=== PATIENT | female | born 1930 | race Caucasian/White ===

== ENCOUNTER 2017-06-05 18:26 | Emergency (ER) | payer MEDICARE, OTHER ==
[2017-06-05 18:37] VITALS: BP 127/77
--- NOTE | 2017-06-05 19:50 | EDM.PDOC ---
ED HPI GENERAL MEDICAL PROBLEM - General Chief Complaint: General Stated Complaint: left hip pain s/p fall out of bed Time Seen by Provider: 06/05/17 18:30 Source of Information: Reports: Patient - History of Present Illness INITIAL COMMENTS - FREE TEXT/NARRATIVE: Patient present to ER by ambulance after falling out of bet hitting her left hip on the floor. Onset: Today, Sudden Location: Reports: Lower Extremity, Left Quality: Reports: Dull Improves with: Reports: None Associated Symptoms: Reports: No Other Symptoms Left Hip Pain Score (Numeric/FACES): 5 - Related Data Allergies Allergy/AdvReac Type Severity Reaction Status Date / Time amoxicillin AdvReac Intermediate Diarrhea Verified 06/05/17 18:37 Home Meds: Home Meds Cholecalciferol (Vitamin D3) [Vitamin D3] 5,000 unit PO DAILY 04/08/15 [History] Furosemide 40 mg PO DAILY 04/08/15 [History] Latanoprost 1 drop EYEBOTH DAILY 04/08/15 [History] Levothyroxine [Synthroid] 50 mcg PO Q48H 04/08/15 [History] Levothyroxine [Synthroid] 100 mcg PO Q48H 04/08/15 [History] NIFEdipine [Nifedipine ER] 60 mg PO DAILY 04/08/15 [History] Aspirin [Halfprin] 81 mg PO DAILY 10/30/15 [History] Past Medical History HEENT History: Reports: Cataract, Glaucoma Cardiovascular History: Reports: Other (See Below) Other Cardiovascular History: edema Gastrointestinal History: Reports: Chronic Constipation Genitourinary History: Reports: Chronic Renal Insuffiency, Pyelonephritis, Other (See Below) Other Genitourinary History: patient does have nephrostomy tube intact, nocturia Musculoskeletal History: Reports: Arthritis, Back Pain, Chronic, Other (See Below) Other Musculoskeletal History: raynaud disease Neurological History: Reports: CVA Endocrine/Metabolic History: Reports: Hypothyroidism, Vitamin D Deficiency Dermatologic History: Reports: Eczema - Infectious Disease History Infectious Disease History: Reports: Other (See Below) Other Infectious Disease History: Cleared VRE, 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 - Past Surgical History HEENT Surgical History: Reports: Cataract Surgery, Tonsillectomy GI Surgical History: Reports: Appendectomy Female Surgical History: Reports: Hysterectomy, Nephrectomy Social & Family History - Tobacco Use Smoking Status *Q: Never Smoker Second Hand Smoke Exposure: No - Recreational Drug Use Recreational Drug Use: No ED ROS GENERAL - Review of Systems Review Of Systems: ROS reveals no pertinent complaints other than HPI. ED EXAM, GENERAL - Physical Exam Exam: See Below Exam Limited By: No Limitations General Appearance: Alert, WD/WN Ears: Normal External Exam Nose: Normal Inspection Throat/Mouth: Normal Inspection Head: Atraumatic Neck: Normal Inspection Respiratory/Chest: No Respiratory Distress Cardiovascular: Normal Peripheral Pulses (Female) Exam: Other (has urostomy with leg bag) Rectal (Female) Exam: Normal Exam Back Exam: Normal Inspection Extremities: Normal Inspection Neurological: Alert, Oriented Skin Exam: Warm, Dry Course - Vital Signs Last Recorded V/S: Last Vital Signs Temp 98.6 F 06/05/17 18:30 Pulse 77 06/05/17 18:30 Resp 20 06/05/17 18:30 BP 127/77 06/05/17 18:30 Pulse Ox 95 06/05/17 18:30 - Orders/Labs/Meds Orders: Active Orders 24 hr Category Date Time Status Hip Min 2V or 3V w Pelvis Lt [CR] Stat Exams 06/05/17 18:35 Ordered CULTURE URINE [RM] Stat Lab 06/05/17 19:00 Received Labs: Laboratory Tests 06/05/17 Range/Units 19:00 Urine Color Yellow (YELLOW) Urine Appearance Cloudy (CLEAR) Urine pH 7.0 (4.5-8.0) Ur Specific [place] 1.012 (1.003-1.020) Urine Protein 30 H (NEGATIVE) mg/dL Urine Glucose (UA) Negative (NEGATIVE) mg/dL Urine Ketones Negative (NEGATIVE) mg/dL Urine Occult Blood Negative (NEGATIVE) Urine Nitrite Positive H (NEGATIVE) Urine Bilirubin Negative (NEGATIVE) Urine Urobilinogen 0.2 (0.2-1.0) EU/dL Ur Leukocyte Esterase Large H (NEGATIVE) Urine RBC Not seen (0-5) /HPF Urine WBC 50-75 H (0-5) /HPF Ur Epithelial Cells Few H (NOT SEEN) /HPF Urine Bacteria Many H (NOT SEEN) /HPF Departure - Departure Time of Disposition: 19:49 (hip xrays are negative. patietn ambulated in room with no difficulty. will treat for UTi as an incidental finding with Bactrim) Disposition: Home, Self-Care 01 Clinical Impression: UTI (urinary tract infection), Contusion, hip - Discharge Information Forms: ED Department Discharge Additional Instructions: Take medications as prescribed. Drink plenty of fluids. - My Orders Last 24 Hours: My Active Orders 06/05/17 18:35 Hip Min 2V or 3V w Pelvis Lt [CR] Stat 06/05/17 19:00 CULTURE URINE [RM] Stat - Assessment/Plan Last 24 Hours: My Active Orders 06/05/17 18:35 Hip Min 2V or 3V w Pelvis Lt [CR] Stat 06/05/17 19:00 CULTURE URINE [RM] Stat
[2017-06-05] MEDS ORDERED: Sulfamethoxazole/Trimethoprim 800-160 MG Tab PO ONE (19:56)
== END 2017-06-05 20:05 | disposition home or self-care (01) ==
LOC: CC.ED 18:26
DX: S70.02XA Contusion of left hip, initial encounter (principal); N39.0 Urinary tract infection, site not specified; N18.9 Chronic kidney disease, unspecified; M19.90 Unspecified osteoarthritis, unspecified site; E03.9 Hypothyroidism, unspecified; Z98.49 Cataract extraction status, unspecified eye; H40.9 Unspecified glaucoma; Z88.1 Allergy status to other antibiotic agents; Z79.899 Other long term (current) drug therapy; Z79.82 Long term (current) use of aspirin; Z90.710 Acquired absence of both cervix and uterus; Z98.890 Other specified postprocedural states; W06.XXXA Fall from bed, initial encounter; Z86.73 Personal history of transient ischemic attack (TIA), and cerebral infarction without residual deficits
CPT/HCPCS: 73502; 81001; 87086; 87088; 87186; 99284; A9270

== ENCOUNTER 2017-06-29 13:40 | Inpatient (IN) | payer MEDICARE, OTHER ==
--- NOTE | 2017-06-29 14:32 | EDM.PDOC ---
[id number] diarrhea Time Seen by Provider: 06/29/17 14:20 Source of Information: Reports: Patient, Family History Limitations: Reports: No Limitations - History of Present Illness INITIAL COMMENTS - FREE TEXT/NARRATIVE: Brought in by EMS as she has been having diarrhea for the last 4-5 days. states that she has had increase in confusion and difficulty getting around. He questions if she may have a UTI also. He states that he can't handle her anymore when she gets this weak. Has been having fevers at home also. Has not been vomiting but has no appetite. Did eat broth for dinner. No nausea. Unable to get up without help. Onset: Gradual Location: Reports: Abdomen - Related Data Allergies Allergy/AdvReac Type Severity Reaction Status Date / Time amoxicillin AdvReac Intermediate Diarrhea Verified 06/29/17 13:41 Home Meds: Home Meds Cholecalciferol (Vitamin D3) [Vitamin D3] 5,000 unit PO DAILY 04/08/15 [History] Furosemide 40 mg PO DAILY 04/08/15 [History] Latanoprost 1 drop EYEBOTH BEDTIME 04/08/15 [History] Levothyroxine [Synthroid] 50 mcg PO Q48H 04/08/15 [History] Levothyroxine [Synthroid] 100 mcg PO Q48H 04/08/15 [History] NIFEdipine [Nifedipine ER] 60 mg PO DAILY 04/08/15 [History] Aspirin [Halfprin] 81 mg PO DAILY 10/30/15 [History] Past Medical History HEENT History: Reports: Cataract, Glaucoma Cardiovascular History: Reports: Other (See Below) Other Cardiovascular History: edema Gastrointestinal History: Reports: Chronic Constipation Genitourinary History: Reports: Chronic Renal Insuffiency, Pyelonephritis, Other (See Below) Other Genitourinary History: patient does have nephrostomy tube intact, nocturia Musculoskeletal History: Reports: Arthritis, Back Pain, Chronic, Other (See Below) Other Musculoskeletal History: raynaud disease Neurological History: Reports: CVA Psychiatric History: Reports: Anxiety, Depression Endocrine/Metabolic History: Reports: Hypothyroidism, Vitamin D Deficiency Dermatologic History: Reports: Eczema - Infectious Disease History Infectious Disease History: Reports: Other (See Below) Other Infectious Disease History: Cleared VRE, 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 - Past Surgical History HEENT Surgical History: Reports: Cataract Surgery, Tonsillectomy GI Surgical History: Reports: Appendectomy Female Surgical History: Reports: Hysterectomy, Nephrectomy Social & Family History - Tobacco Use Smoking Status *Q: Never Smoker Second Hand Smoke Exposure: No - Caffeine Use Caffeine Use: Reports: None - Recreational Drug Use Recreational Drug Use: No - Living Situation & Occupation Living situation: Reports: , with Spouse Occupation: Retired ED ROS GENERAL - Review of Systems Review Of Systems: See Below Constitutional: Reports: Fever, Weakness. Denies: Chills HEENT: Reports: No Symptoms Respiratory: Denies: Shortness of Breath, Cough Cardiovascular: Denies: Chest Pain GI/Abdominal: Reports: Anorexia, Diarrhea. Denies: Nausea, Vomiting : Reports: Other (has a urostomy tube in left flank area. This does get infected easily.) Skin: Denies: Rash Neurological: Reports: Confusion, Difficulty Walking, Weakness ED EXAM, GENERAL - Physical Exam Exam: See Below Exam Limited By: No Limitations General Appearance: Alert, No Apparent Distress Ears: Normal External Exam, Normal Canal, Normal TMs Nose: Normal Inspection Throat/Mouth: Normal Inspection, Normal Oropharynx, Normal Voice, No Airway Compromise Head: Atraumatic, Normocephalic Neck: Normal Inspection, Supple, Full Range of Motion Respiratory/Chest: No Respiratory Distress, Lungs Clear, Normal Breath Sounds Cardiovascular: Normal Peripheral Pulses, Regular Rate, Rhythm, No Edema GI/Abdominal: Soft, Non-Tender, No Organomegaly, Other (hyperactive bowel sounds to all.) Rectal (Female) Exam: Tenderness (to rectum from the diarrhea) Back Exam: Normal Inspection Extremities: No Pedal Edema, Normal Capillary Refill Neurological: Alert Skin Exam: Warm, Dry, Intact Course - Vital Signs Last Recorded V/S: Last Vital Signs Temp 97 F 06/29/17 20:00 Pulse 83 06/29/17 20:00 Resp 18 06/29/17 20:00 BP 106/54 L 06/29/17 20:00 Pulse Ox 95 06/29/17 20:00 - Orders/Labs/Meds Orders: Active Orders 24 hr Category Date Time Status Patient Status [ADT] Routine ADT 06/29/17 16:08 Active Height and Weight [RC] 0500 Care 06/29/17 16:07 Active Intake and Output [RC] 0600,1800 Care 06/29/17 16:09 Active Oxygen Therapy [RC] .PRN Care 06/29/17 16:08 Active Pulse Oximetry [RC] .PRN Care 06/29/17 16:09 Active Up With Assistance [RC] .PRN Care 06/29/17 16:07 Active Vital Signs [RC] 0000,0400,0800,1200,1600,2000 Care 06/29/17 16:08 Active Consult to Electroencephalographic Technologist [CONS] Routine Cons 06/29/17 16:07 Active PT Evaluation and Treatment [CONS] Routine Cons 06/29/17 16:07 Active Regular Diet [DIET] Diet 06/29/17 Dinner Active Chest 2V [CR] Stat Exams 06/29/17 14:07 Taken BASIC METABOLIC PANEL,BMP [CHEM] DAILY Lab 06/30/17 16:15 Ordered BASIC METABOLIC PANEL,BMP [CHEM] DAILY Lab 07/01/17 16:15 Ordered BASIC METABOLIC PANEL,BMP [CHEM] DAILY Lab 07/02/17 16:15 Ordered C DIFFICILE BY DNA [RM] Urgent Lab 06/29/17 14:46 Uncollected C-REACTIVE PROTEIN [CHEM] DAILY Lab 06/30/17 16:15 Ordered C-REACTIVE PROTEIN [CHEM] DAILY Lab 07/01/17 16:15 Ordered C-REACTIVE PROTEIN [CHEM] DAILY Lab 07/02/17 16:15 Ordered CBC WITH AUTO DIFF [HEME] DAILY Lab 06/30/17 06:00 Ordered CBC WITH AUTO DIFF [HEME] DAILY Lab 07/01/17 06:00 Ordered CBC WITH AUTO DIFF [HEME] DAILY Lab 07/02/17 06:00 Ordered CULTURE URINE [RM] Stat Lab 06/29/17 14:00 Received STOOL CULTURE [MREF] Stat Lab 06/29/17 14:45 Uncollected WBC, STOOL [OP] Urgent Lab 06/29/17 14:45 Uncollected Acetaminophen [Tylenol] Med 06/29/17 16:07 Active 650 mg PO Q4H PRN Sodium Chloride 0.9% [Normal Saline] 1,000 ml Med 06/29/17 14:45 Active IV ASDIRECTED Resuscitation Status Routine Resus Stat 06/29/17 16:07 Ordered Medication Orders Acetaminophen (Tylenol) 650 mg PO Q4H PRN PRN Reason: Pain (Mild 1-3)/fever Aspirin (Halfprin) 81 mg PO DAILY [facility] Calamine/Phenol (Calmoseptine) 0 gm TOP QID PRN PRN Reason: Rash Cholecalciferol (Vitamin D3) 5,000 units PO DAILY [facility] Enoxaparin Sodium (Lovenox) 30 mg SUBCUT Q24H [facility] Last Admin: 06/29/17 19:59 Dose: 30 mg Furosemide (Lasix) 40 mg PO DAILY [facility] Sodium Chloride (Normal Saline) 1,000 mls @ 100 mls/hr IV ASDIRECTED [facility] Last Admin: 06/29/17 19:34 Dose: 100 mls/hr Infusion: 06/29/17 19:34 Dose: 100 mls/hr Admin: 06/29/17 15:05 Dose: 100 mls/hr Levofloxacin/Dextrose 250 mg/ (Premix) 50 mls @ 50 mls/hr IV Q24H [facility] Latanoprost (Xalatan 0.005% Oph Soln) 0 ml EYEBOTH BEDTIME [facility] Last Admin: 06/29/17 20:05 Dose: 1 drop Levothyroxine Sodium (Synthroid) 50 mcg PO Q48H [facility] Levothyroxine Sodium (Synthroid) 100 mcg PO Q48H [facility] Nifedipine (Procardia Xl) 60 mg PO DAILY [facility] Labs: Laboratory Tests 06/29/17 06/29/17 06/29/17 Range/Units 14:00 14:07 14:07 WBC 15.8 H (5.0-10.0) 10^3/uL RBC 4.82 (4.00-5.50) 10^6/uL Hgb 13.8 (12.0-16.0) g/dL Hct 41.8 (37.0-47.0) % MCV 86.7 (82.0-94.0) fL MCH 28.6 (27.0-32.0) pg MCHC 33.0 (33.0-38.0) g/dL RDW Coeff of [place]ia 21.0 H (11.0-15.0) % Plt Count 255 (150-400) 10^3/uL Neut % (Auto) 80.5 (35-85) % Lymph % (Auto) 8.8 L (10-55) % [place] % (Auto) 10.5 (0-16) % Eos % (Auto) 0.1 (0-5) % Baso % (Auto) 0.1 (0-3) % Neut # (Auto) 12.68 H (1.80-7.00) 10^3/uL Lymph # (Auto) 1.38 (1.00-4.80) 10^3/uL [place] # (Auto) 1.66 H (0.00-0.80) 10^3/uL Eos # (Auto) 0.02 (0.00-0.45) 10^3/uL Baso # (Auto) 0.01 10^3/uL Sodium 141 (136-145) mEq/L Potassium 3.9 (3.5-5.0) mEq/L Chloride 107 H (98-106) mEq/L Carbon Dioxide 20 L (21-32) mmol/L BUN 58 H D (7-18) mg/dL Creatinine 1.9 H (0.6-1.0) mg/dL Est Cr Clr Drug Dosing 15.24 mL/min Estimated GFR (MDRD) 25 L (>=60) mL/min Glucose 134 H D (75-99) mg/dL Calcium 9.1 (8.4-10.1) mg/dL Total Bilirubin 0.5 (0.0-1.0) mg/dL AST 11 L (15-37) U/L ALT 9 L (12-78) U/L Alkaline Phosphatase 161 H (46-116) U/L C-Reactive Protein 15.1 H (0.2-0.8) mg/dL Total Protein 7.0 (6.4-8.2) g/dL Albumin 2.7 L (3.4-5.0) g/dL Urine Color Yellow (YELLOW) Urine Appearance Cloudy (CLEAR) Urine pH 5.5 (4.5-8.0) Ur Specific [place] 1.015 (1.003-1.020) Urine Protein 100 H (NEGATIVE) mg/dL Urine Glucose (UA) Negative (NEGATIVE) mg/dL Urine Ketones Negative (NEGATIVE) mg/dL Urine Occult Blood Moderate H (NEGATIVE) Urine Nitrite Positive H (NEGATIVE) Urine Bilirubin Negative (NEGATIVE) Urine Urobilinogen 0.2 (0.2-1.0) EU/dL Ur Leukocyte Esterase Moderate H (NEGATIVE) Urine RBC Not seen (0-5) /HPF Urine WBC >100 H (0-5) /HPF Ur Epithelial Cells Moderate H (NOT SEEN) /HPF Urine Bacteria Many H (NOT SEEN) /HPF Urinalysis Comment Meds: Medications Generic Name Dose Route Start Last Admin Trade Name Jeremi PRN Reason Stop Dose Admin Acetaminophen 650 mg 06/29/17 16:07 Tylenol PO Q4H PRN Pain (Mild 1-3)/fever Aspirin 81 mg 06/30/17 08:00 Halfprin PO DAILY [facility] Calamine/Phenol 0 gm 06/29/17 16:11 Calmoseptine TOP QID PRN Rash Cholecalciferol 5,000 units 06/30/17 08:00 Vitamin D3 PO DAILY [facility] Enoxaparin Sodium 30 mg 06/29/17 20:00 06/29/17 19:59 Lovenox SUBCUT 30 mg Q24H [facility] Administration Furosemide 40 mg 06/30/17 08:00 Lasix PO DAILY [facility] Sodium Chloride 1,000 mls @ 100 mls/hr 06/29/17 14:45 06/29/17 19:34 Normal Saline IV 100 mls/hr ASDIRECTED [facility] Administration Levofloxacin/Dextrose 250 mg/ 50 mls @ 50 mls/hr 06/30/17 20:00 Premix IV Q24H [facility] Latanoprost 0 ml 06/29/17 20:00 06/29/17 20:05 Xalatan 0.005% Ophth Soln EYEBOTH 1 drop BEDTIME [facility] Administration Levothyroxine Sodium 50 mcg 06/30/17 07:00 Synthroid PO Q48H [facility] Levothyroxine Sodium 100 mcg 07/01/17 07:00 Synthroid PO Q48H [facility] Nifedipine 60 mg 06/30/17 08:00 Procardia Xl PO DAILY [facility] Discontinued Medications Generic Name Dose Route Start Last Admin Trade Name Jeremi PRN Reason Stop Dose Admin Enoxaparin Sodium 30 mg 06/29/17 16:15 06/29/17 17:47 Lovenox SUBCUT Not Given Q24H [facility] Levofloxacin/Dextrose 500 mg/ 100 mls @ 100 mls/hr 06/29/17 19:19 06/29/17 20 :01 Premix IV 06/29/17 20:18 100 mls/hr ONETIME ONE Administration Levothyroxine Sodium 50 mcg 06/29/17 16:15 06/29/17 17:47 Synthroid PO Not Given Q48H [facility] Levothyroxine Sodium 100 mcg 06/29/17 16:15 06/29/17 17:48 Synthroid PO Not Given Q48H [facility] Non-Formulary Medication 5,000 unit 06/30/17 08:00 Cholecalciferol (Vitamin D3) [Vitamin D3] PO DAILY [facility] Non-Formulary Medication 60 mg 06/30/17 08:00 Nifedipine [Nifedipine Er] PO DAILY [facility] Departure - Departure Time of Disposition: 17:50 Disposition: Admitted As Inpatient 64 Clinical Impression: Weakness generalized Diarrhea Qualifiers: Diarrhea type: presumed infectious Qualified Code(s): A09 - Infectious gastroenteritis and colitis, unspecified UTI (urinary tract infection) Qualifiers: Urinary tract infection type: acute cystitis Hematuria presence: with hematuria Qualified Code(s): N30.01 - Acute cystitis with hematuria - Discharge Information - Problem List & Annotations (1) Diarrhea SNOMED Code(s): 66957170 Code(s): R19.7 - DIARRHEA, UNSPECIFIED Status: Acute Priority: High Current Visit: Yes Qualifiers: Diarrhea type: presumed infectious Qualified Code(s): A09 - Infectious gastroenteritis and colitis, unspecified (2) Weakness generalized SNOMED Code(s): 69111714 Code(s): R53.1 - WEAKNESS Status: Acute Priority: High Current Visit: Yes (3) UTI (urinary tract infection) SNOMED Code(s): 80464580 Code(s): N39.0 - URINARY TRACT INFECTION, SITE NOT SPECIFIED Status: Acute Priority: High Current Visit: Yes Qualifiers: Urinary tract infection type: acute cystitis Hematuria presence: with hematuria Qualified Code(s): N30.01 - Acute cystitis with hematuria - Problem List Review Problem List Initiated/Reviewed/Updated: Yes - My Orders Last 24 Hours: My Active Orders 06/29/17 14:00 CULTURE URINE [RM] Stat 06/29/17 14:07 Chest 2V [CR] Stat 06/29/17 14:45 STOOL CULTURE [MREF] Stat WBC, STOOL [OP] Urgent Sodium Chloride 0.9% [Normal Saline] 1,000 ml IV ASDIRECTED 06/29/17 14:46 C DIFFICILE BY DNA [RM] Urgent 06/29/17 16:07 Height and Weight [RC] 0500 Up With Assistance [RC] .PRN Consult to Electroencephalographic Technologist [CONS] Routine PT Evaluation and Treatment [CONS] Routine Acetaminophen [Tylenol] 650 mg PO Q4H PRN Resuscitation Status Routine 06/29/17 16:08 Patient Status [ADT] Routine Oxygen Therapy [RC] .PRN Vital Signs [RC] 0000,0400,0800,1200,1600,2000 06/29/17 16:09 Intake and Output [RC] 0600,1800 Pulse Oximetry [RC] .PRN 06/29/17 Dinner Regular Diet [DIET] 06/30/17 06:00 CBC WITH AUTO DIFF [HEME] DAILY 06/30/17 16:15 BASIC METABOLIC PANEL,BMP [CHEM] DAILY C-REACTIVE PROTEIN [CHEM] DAILY 07/01/17 06:00 CBC WITH AUTO DIFF [HEME] DAILY 07/01/17 16:15 BASIC METABOLIC PANEL,BMP [CHEM] DAILY C-REACTIVE PROTEIN [CHEM] DAILY 07/02/17 06:00 CBC WITH AUTO DIFF [HEME] DAILY 07/02/17 16:15 BASIC METABOLIC PANEL,BMP [CHEM] DAILY C-REACTIVE PROTEIN [CHEM] DAILY - Assessment/Plan Admission H&P: Please use this note as an admission H&P Last 24 Hours: My Active Orders 06/29/17 14:00 CULTURE URINE [RM] Stat 06/29/17 14:07 Chest 2V [CR] Stat 06/29/17 14:45 STOOL CULTURE [MREF] Stat WBC, STOOL [OP] Urgent Sodium Chloride 0.9% [Normal Saline] 1,000 ml IV ASDIRECTED 06/29/17 14:46 C DIFFICILE BY DNA [RM] Urgent 06/29/17 16:07 Height and Weight [RC] 0500 Up With Assistance [RC] .PRN Consult to Electroencephalographic Technologist [CONS] Routine PT Evaluation and Treatment [CONS] Routine Acetaminophen [Tylenol] 650 mg PO Q4H PRN Resuscitation Status Routine 06/29/17 16:08 Patient Status [ADT] Routine Oxygen Therapy [RC] .PRN Vital Signs [RC] 0000,0400,0800,1200,1600,2000 06/29/17 16:09 Intake and Output [RC] 0600,1800 Pulse Oximetry [RC] .PRN 06/29/17 Dinner Regular Diet [DIET] 06/30/17 06:00 CBC WITH AUTO DIFF [HEME] DAILY 06/30/17 16:15 BASIC METABOLIC PANEL,BMP [CHEM] DAILY C-REACTIVE PROTEIN [CHEM] DAILY 07/01/17 06:00 CBC WITH AUTO DIFF [HEME] DAILY 07/01/17 16:15 BASIC METABOLIC PANEL,BMP [CHEM] DAILY C-REACTIVE PROTEIN [CHEM] DAILY 07/02/17 06:00 CBC WITH AUTO DIFF [HEME] DAILY 07/02/17 16:15 BASIC METABOLIC PANEL,BMP [CHEM] DAILY C-REACTIVE PROTEIN [CHEM] DAILY Plan: Will admit to Dr. Pathak acute care. Case was discussed with Dr. Pathak at the time of admit and he voices agreement. Will plan on group home placement
[2017-06-29] MEDS: Sodium Chloride 0.9% 1,000 ML IV SCH ×2 (15:05→19:34)
[2017-06-29] MEDS ORDERED: Acetaminophen 325 MG Tab PO PRN (16:07)
[2017-06-29] MEDS ORDERED: Menthol/Zinc Oxide Ointment 113 GM Tube TOP PRN (16:11)
[2017-06-29] MEDS ORDERED: Enoxaparin 30 MG/0.3 ML Syringe SUBCUT SCH (16:15)
[2017-06-29] MEDS ORDERED: Levothyroxine 100 MCG Tab PO SCH ×2 (16:15)
[2017-06-29] MEDS ORDERED: Sodium Chloride 0.9% 1,000 ML IV SCH (16:15)
[2017-06-29] MEDS ORDERED: Levofloxacin/Dextrose 5%-Water 500 MG in Premix Bag 1 BAG IV ONE (19:19)
[2017-06-29] MEDS: Enoxaparin 30 MG/0.3 ML Syringe SUBCUT SCH (19:59)
[2017-06-29] MEDS: Latanoprost 0.005% Ophth Soln 2.5 ML Bottle EYEBOTH SCH (20:05)
[2017-06-30] MEDS: Sodium Chloride 0.9% 1,000 ML IV SCH ×2 (06:20→15:53)
[2017-06-30] MEDS ORDERED: Levothyroxine 100 MCG Tab PO SCH (07:00)
[2017-06-30] MEDS ORDERED: Non-Formulary Medication 1 Each (Cholecalciferol (Vitamin D3) [Vitamin D3] 5,000 UNIT) PO SCH (08:00)
[2017-06-30] MEDS ORDERED: NIFEDIPINE 60 MG PO SCH (08:00)
[2017-06-30] MEDS: Furosemide 40 MG Tab PO SCH (08:08)
[2017-06-30] MEDS: Levothyroxine 50 MCG Tab PO SCH (08:08)
[2017-06-30] MEDS: Aspirin 81 MG Tab.EC PO SCH (08:08)
[2017-06-30] MEDS: NIFEdipine 30 MG Tab.ER PO SCH (08:08)
[2017-06-30] MEDS: Cholecalciferol (Vitamin D3) 1,000 Unit Tab PO SCH (08:08)
--- NOTE | 2017-06-30 09:21 | PN ---
DATE: 06/30/2017 S: Olga Ruvalcaba is an elderly white female who was admitted with confusion and has UTI. O: GENERAL: On examination, the patient is somewhat confused today. NECK: Supple. CHEST: Clear. CARDIAC: Regular. ABDOMEN: Soft. ASSESSMENT: URINARY TRACT INFECTION, EARLY DEMENTIA. P: Continue IV antibiotics. Look for intermediate. MOOKIE /[id number]
[2017-06-30] MEDS: Enoxaparin 30 MG/0.3 ML Syringe SUBCUT SCH (20:34)
[2017-06-30] MEDS: Latanoprost 0.005% Ophth Soln 2.5 ML Bottle EYEBOTH SCH (20:35)
[2017-06-30] MEDS: Levofloxacin/Dextrose 5%-Water 250 MG in Premix Bag 1 BAG IV SCH (20:35)
[2017-07-01] MEDS: Sodium Chloride 0.9% 1,000 ML IV SCH ×2 (03:18→13:21)
[2017-07-01] MEDS ORDERED: Levothyroxine 100 MCG Tab PO SCH (07:00)
[2017-07-01] MEDS: Furosemide 40 MG Tab PO SCH (07:58)
[2017-07-01] MEDS: NIFEdipine 30 MG Tab.ER PO SCH (07:58)
[2017-07-01] MEDS: Aspirin 81 MG Tab.EC PO SCH (07:59)
[2017-07-01] MEDS: Cholecalciferol (Vitamin D3) 1,000 Unit Tab PO SCH (09:34)
[2017-07-01] MEDS: Levofloxacin/Dextrose 5%-Water 250 MG in Premix Bag 1 BAG IV SCH (19:39)
[2017-07-01] MEDS ORDERED: cefTRIAXone 1 GM Vial IVPUSH SCH (20:00)
--- NOTE | 2017-07-01 20:22 | PCM.PN ---
- General Info Date of Service: 07/01/17 Functional Status: Reports: Pain Controlled, Tolerating Diet, Urinating. Denies : New Symptoms Pain Score: 0 - Review of Systems General: Reports: No Symptoms HEENT: Reports: No Symptoms Pulmonary: Reports: No Symptoms Cardiovascular: Reports: No Symptoms Gastrointestinal: Reports: No Symptoms Genitourinary: Reports: No Symptoms Musculoskeletal: Reports: No Symptoms Skin: Reports: No Symptoms Neurological: Reports: Confusion Psychiatric: Reports: Mood Lability, Agitation - Patient Data Vitals - Most Recent: Last Vital Signs Temp 36.6 C 07/01/17 20:00 Pulse 92 07/01/17 20:00 Resp 18 07/01/17 20:00 BP 113/59 L 07/01/17 20:00 Pulse Ox 93 L 07/01/17 20:00 Weight - Most Recent: 45.994 kg I&O - Last 24 Hours: Intake & Output 07/01/17 07/01/17 07/01/17 06:59 14:59 22:59 Intake Total 1300 1000 400 Output Total 1275 3150 Balance 25 1000 -2750 Lab Results Last 24 Hours: Laboratory Results - last 24 hr 07/01/17 07/01/17 Range/Units 06:00 07:30 WBC 8.8 (5.0-10.0) 10^3/uL RBC 4.27 (4.00-5.50) 10^6/uL Hgb 12.2 (12.0-16.0) g/dL Hct 37.6 (37.0-47.0) % MCV 88.1 (82.0-94.0) fL MCH 28.6 (27.0-32.0) pg MCHC 32.4 L (33.0-38.0) g/dL RDW Coeff of Saskia 20.0 H (11.0-15.0) % Plt Count 238 (150-400) 10^3/uL Neut % (Auto) 76.1 (35-85) % Lymph % (Auto) 12.3 (10-55) % [place] % (Auto) 10.8 (0-16) % Eos % (Auto) 0.6 (0-5) % Baso % (Auto) 0.2 (0-3) % Neut # (Auto) 6.66 (1.80-7.00) 10^3/uL Lymph # (Auto) 1.08 (1.00-4.80) 10^3/uL [place] # (Auto) 0.95 H (0.00-0.80) 10^3/uL Eos # (Auto) 0.05 (0.00-0.45) 10^3/uL Baso # (Auto) 0.02 10^3/uL Sodium 142 (136-145) mEq/L Potassium 3.8 (3.5-5.0) mEq/L Chloride 109 H (98-106) mEq/L Carbon Dioxide 19 L (21-32) mmol/L BUN 35 H (7-18) mg/dL Creatinine 1.4 H (0.6-1.0) mg/dL Est Cr Clr Drug Dosing 19.78 mL/min Estimated GFR (MDRD) 35 L (>=60) mL/min Glucose 92 (75-99) mg/dL Calcium 8.7 (8.4-10.1) mg/dL C-Reactive Protein 7.1 H (0.2-0.8) mg/dL Conner Results Last 24 Hours: Urine culture E-COli resistant to Levaquin-Will change to Rocephin 1 gm IV q 24 hours Med Orders - Current: Current Medications Acetaminophen (Tylenol) 650 mg PO Q4H PRN PRN Reason: Pain (Mild 1-3)/fever Calamine/Phenol (Calmoseptine) 0 gm TOP QID PRN PRN Reason: Rash Ceftriaxone Sodium (Rocephin) 1 gm IVPUSH Q24H [facility] Cholecalciferol (Vitamin D3) 5,000 units PO DAILY [facility] Last Admin: 07/01/17 09:34 Dose: Not Given Furosemide (Lasix) 40 mg PO DAILY [facility] Last Admin: 07/01/17 07:58 Dose: 40 mg Sodium Chloride (Normal Saline) 1,000 mls @ 100 mls/hr IV ASDIRECTED [facility] Last Admin: 07/01/17 13:21 Dose: 100 mls/hr Latanoprost (Xalatan 0.005% Ophth Soln) 0 ml EYEBOTH BEDTIME [facility] Last Admin: 06/30/17 20:35 Dose: 1 drop Levothyroxine Sodium (Synthroid) 50 mcg PO Q48H [facility] Last Admin: 06/30/17 08:08 Dose: 50 mcg Levothyroxine Sodium (Synthroid) 100 mcg PO Q48H [facility] Last Admin: 07/01/17 06:37 Dose: 100 mcg Nifedipine (Procardia Xl) 60 mg PO DAILY [facility] Last Admin: 07/01/17 07:58 Dose: 60 mg Discontinued Medications Aspirin (Halfprin) 81 mg PO DAILY [facility] Last Admin: 07/01/17 07:59 Dose: Not Given Enoxaparin Sodium (Lovenox) 30 mg SUBCUT Q24H [facility] Last Admin: 06/29/17 17:47 Dose: Not Given Enoxaparin Sodium (Lovenox) 30 mg SUBCUT Q24H [facility] Last Admin: 06/30/17 20:34 Dose: 30 mg Levofloxacin/Dextrose 500 mg/ (Premix) 100 mls @ 100 mls/hr IV ONETIME ONE Stop: 06/29/17 20:18 Last Admin: 06/29/17 20:01 Dose: 100 mls/hr Levofloxacin/Dextrose 250 mg/ (Premix) 50 mls @ 50 mls/hr IV Q24H [facility] Last Admin: 07/01/17 19:39 Dose: 50 mls/hr Levothyroxine Sodium (Synthroid) 50 mcg PO Q48H [facility] Last Admin: 06/29/17 17:47 Dose: Not Given Levothyroxine Sodium (Synthroid) 100 mcg PO Q48H [facility] Last Admin: 06/29/17 17:48 Dose: Not Given Non-Formulary Medication (Cholecalciferol (Vitamin D3) [Vitamin D3]) 5,000 unit PO DAILY [facility] Non-Formulary Medication (Nifedipine [Nifedipine Er]) 60 mg PO DAILY [facility] - Exam General: Alert, Oriented, Cooperative HEENT: Pupils Equal, Pupils Reactive, EOMI, Mucous Membr. Moist/[place] Neck: Supple, Trachea Midline Lungs: Clear to Auscultation, Normal Respiratory Effort Cardiovascular: Regular Rate, Regular Rhythm GI/Abdominal Exam: Normal Bowel Sounds, Soft, Non-Tender (Female) Exam: Deferred Back Exam: Normal Inspection Extremities: Normal Inspection, Normal Range of Motion, Non-Tender, No Pedal Edema, Normal Capillary Refill Peripheral Pulses: 3+: Radial (L), Radial (R), Popliteal (L), Popliteal (R), Dorsalis Pedis (L), Dorsalis Pedis (R) Skin: Warm, Dry, Intact Wound/Incisions: Dressing Dry and Intact, Other (IV patent) Neurological: No New Focal Deficit (Requesting to get dressed and go home to fix dinner for .), Strength Equal Bilateral, Reflexes Equal Bilateral Psy/Mental Status: Alert, Anxious, Agitated - Problem List & Annotations (1) UTI (urinary tract infection) SNOMED Code(s): 05716940 Code(s): N39.0 - URINARY TRACT INFECTION, SITE NOT SPECIFIED Status: Acute Current Visit: Yes Qualifiers: Urinary tract infection type: acute cystitis Hematuria presence: with hematuria Qualified Code(s): N30.01 - Acute cystitis with hematuria - Problem List Review Problem List Initiated/Reviewed/Updated: Yes - My Orders Last 24 Hours: My Active Orders 07/01/17 20:00 cefTRIAXone [Rocephin] 1 gm IVPUSH Q24H - Assessment Assessment:: 07-01-2017 Afebile. Incident with hudson bloody stool x 1 this am-without recurrance. Discontinued Lovenox and ASA. Will close observation. UTI resistant to Levaquin Dementia Alzheimers - Plan Plan:: Continue current therapy with antibiotic change to Rocephin 1 gram IV every 24 hours. Discontinue Levaquin. Increase fluids, ambulation and prepare for discharge to NH per family.
[2017-07-01] MEDS: Latanoprost 0.005% Ophth Soln 2.5 ML Bottle EYEBOTH SCH (20:51)
[2017-07-02] MEDS: Sodium Chloride 0.9% 1,000 ML IV SCH (00:22)
[2017-07-02] MEDS: Levothyroxine 50 MCG Tab PO SCH (06:25)
[2017-07-02] MEDS: NIFEdipine 30 MG Tab.ER PO SCH (07:47)
[2017-07-02] MEDS: Furosemide 40 MG Tab PO SCH (07:47)
[2017-07-02] MEDS: Cholecalciferol (Vitamin D3) 1,000 Unit Tab PO SCH (07:48)
[2017-07-02 07:50] VITALS: BP 136/79
[2017-07-02] MEDS ORDERED: Potassium Chloride 10 MEQ Tab.ER PO SCH (09:45)
--- NOTE | 2017-07-02 11:52 | PCM.DCSUM1 ---
Discharge Summary - Discharge Data Discharge Date: 07/02/17 Discharge Disposition: DC/Tfer W/I Hosp To Swing 61 Condition: Fair - Discharge Diagnosis/Problem(s) (1) UTI (urinary tract infection) SNOMED Code(s): 30051663 ICD Code: N39.0 - URINARY TRACT INFECTION, SITE NOT SPECIFIED Status: Acute Current Visit: Yes Qualifiers: Urinary tract infection type: acute cystitis Hematuria presence: with hematuria Qualified Code(s): N30.01 - Acute cystitis with hematuria (2) Melena SNOMED Code(s): 6428377, 558330541 ICD Code: K92.1 - MELENA Status: Acute Current Visit: Yes - Patient Instructions Diet: Regular Diet as Tolerated Activity: As Tolerated, Bedrest, May Use Bathroom Driving: Do Not Drive Showering/Bathing: May Shower Notify Provider of: Fever, Increased Pain, Swelling and Redness, Drainage, Nausea and/or Vomiting - Discharge Plan Home Medications: Home Meds Cholecalciferol (Vitamin D3) [Vitamin D3] 5,000 unit PO DAILY 04/08/15 [History] Furosemide 40 mg PO DAILY 04/08/15 [History] Latanoprost 1 drop EYEBOTH BEDTIME 04/08/15 [History] Levothyroxine [Synthroid] 50 mcg PO Q48H 04/08/15 [History] Levothyroxine [Synthroid] 100 mcg PO Q48H 04/08/15 [History] NIFEdipine [Nifedipine ER] 60 mg PO DAILY 04/08/15 [History] Aspirin [Halfprin] 81 mg PO DAILY 10/30/15 [History] Forms: ED Department Discharge Referrals: Edmundo Pathak MD [Primary Care Provider] - - Patient Data Vitals - Most Recent: Last Vital Signs Temp 36.8 C 07/02/17 07:44 Pulse 96 07/02/17 07:44 Resp 16 07/02/17 07:44 BP 136/79 07/02/17 07:47 Pulse Ox 94 L 07/02/17 07:44 Weight - Most Recent: 46.448 kg I&O - Last 24 hours: Intake & Output 07/01/17 07/02/17 07/02/17 22:59 06:59 14:59 Intake Total 400 1200 200 Output Total 3150 1300 Balance -2750 -100 200 Lab Results - Last 24 hrs: Laboratory Results - last 24 hr 07/02/17 07/02/17 Range/Units 06:00 07:00 WBC 9.4 (5.0-10.0) 10^3/uL RBC 4.22 (4.00-5.50) 10^6/uL Hgb 12.1 (12.0-16.0) g/dL Hct 36.9 L (37.0-47.0) % MCV 87.4 (82.0-94.0) fL MCH 28.7 (27.0-32.0) pg MCHC 32.8 L (33.0-38.0) g/dL RDW Coeff of Saskia 20.0 H (11.0-15.0) % Plt Count 253 (150-400) 10^3/uL Neut % (Auto) 76.2 (35-85) % Lymph % (Auto) 12.3 (10-55) % [place] % (Auto) 10.2 (0-16) % Eos % (Auto) 1.1 (0-5) % Baso % (Auto) 0.2 (0-3) % Neut # (Auto) 7.18 H (1.80-7.00) 10^3/uL Lymph # (Auto) 1.16 (1.00-4.80) 10^3/uL [place] # (Auto) 0.96 H (0.00-0.80) 10^3/uL Eos # (Auto) 0.10 (0.00-0.45) 10^3/uL Baso # (Auto) 0.02 10^3/uL Sodium 143 (136-145) mEq/L Potassium 3.3 L (3.5-5.0) mEq/L Chloride 109 H (98-106) mEq/L Carbon Dioxide 21 (21-32) mmol/L BUN 24 H (7-18) mg/dL Creatinine 1.2 H (0.6-1.0) mg/dL Est Cr Clr Drug Dosing 23.30 mL/min Estimated GFR (MDRD) 42 L (>=60) mL/min Glucose 86 (75-99) mg/dL Calcium 8.4 (8.4-10.1) mg/dL Total Bilirubin 0.4 (0.0-1.0) mg/dL AST 18 (15-37) U/L ALT 9 L (12-78) U/L Alkaline Phosphatase 131 H (46-116) U/L C-Reactive Protein 5.2 H (0.2-0.8) mg/dL Total Protein 6.5 (6.4-8.2) g/dL Albumin 2.6 L (3.4-5.0) g/dL Med Orders - Current: Current Medications Acetaminophen (Tylenol) 650 mg PO Q4H PRN PRN Reason: Pain (Mild 1-3)/fever Calamine/Phenol (Calmoseptine) 0 gm TOP QID PRN PRN Reason: Rash Ceftriaxone Sodium (Rocephin) 1 gm IVPUSH Q24H [facility] Last Admin: 07/01/17 20:51 Dose: 1 gm Cholecalciferol (Vitamin D3) 5,000 units PO DAILY [facility] Last Admin: 07/02/17 07:48 Dose: 5,000 units Latanoprost (Xalatan 0.005% Ophth Soln) 0 ml EYEBOTH BEDTIME [facility] Last Admin: 07/01/17 20:51 Dose: 1 drop Levothyroxine Sodium (Synthroid) 50 mcg PO Q48H [facility] Last Admin: 07/02/17 06:25 Dose: 50 mcg Levothyroxine Sodium (Synthroid) 100 mcg PO Q48H [facility] Last Admin: 07/01/17 06:37 Dose: 100 mcg Nifedipine (Procardia Xl) 60 mg PO DAILY [facility] Last Admin: 07/02/17 07:47 Dose: 60 mg Potassium Chloride (Klor-Con 10) 20 meq PO DAILY [facility] Discontinued Medications Aspirin (Halfprin) 81 mg PO DAILY [facility] Last Admin: 07/01/17 07:59 Dose: Not Given Enoxaparin Sodium (Lovenox) 30 mg SUBCUT Q24H [facility] Last Admin: 06/29/17 17:47 Dose: Not Given Enoxaparin Sodium (Lovenox) 30 mg SUBCUT Q24H [facility] Last Admin: 06/30/17 20:34 Dose: 30 mg Furosemide (Lasix) 40 mg PO DAILY [facility] Last Admin: 07/02/17 07:47 Dose: 40 mg Sodium Chloride (Normal Saline) 1,000 mls @ 100 mls/hr IV ASDIRECTED [facility] Last Admin: 07/02/17 00:22 Dose: 100 mls/hr Levofloxacin/Dextrose 500 mg/ (Premix) 100 mls @ 100 mls/hr IV ONETIME ONE Stop: 06/29/17 20:18 Last Admin: 06/29/17 20:01 Dose: 100 mls/hr Levofloxacin/Dextrose 250 mg/ (Premix) 50 mls @ 50 mls/hr IV Q24H [facility] Last Admin: 07/01/17 19:39 Dose: 50 mls/hr Levothyroxine Sodium (Synthroid) 50 mcg PO Q48H [facility] Last Admin: 06/29/17 17:47 Dose: Not Given Levothyroxine Sodium (Synthroid) 100 mcg PO Q48H [facility] Last Admin: 06/29/17 17:48 Dose: Not Given Non-Formulary Medication (Cholecalciferol (Vitamin D3) [Vitamin D3]) 5,000 unit PO DAILY [facility] Non-Formulary Medication (Nifedipine [Nifedipine Er]) 60 mg PO DAILY [facility] *Q Meaningful Use (DIS) - VTE *Q VTE Criteria *Q: - Stroke *Q Stroke Criteria *Q: - AMI *Q AMI Criteria *Q:
== END 2017-07-02 12:05 | disposition swing bed (61) | DRG 392 ==
LOC: CC.ED 13:40 → UNDOADMIN 15:16 → CC.MS 15:16
PROVIDERS: ADMIT Physician Assistant Medical; ATTEND General Practice
DX: A09 Infectious gastroenteritis and colitis, unspecified (principal); N30.01 Acute cystitis with hematuria; K92.1 Melena; R35.1 Nocturia; R53.1 Weakness; N18.9 Chronic kidney disease, unspecified; I73.00 Raynaud's syndrome without gangrene; F41.8 Other specified anxiety disorders; E03.9 Hypothyroidism, unspecified; E55.9 Vitamin D deficiency, unspecified; Z88.1 Allergy status to other antibiotic agents; Z86.73 Personal history of transient ischemic attack (TIA), and cerebral infarction without residual deficits; Z93.6 Other artificial openings of urinary tract status; Z79.899 Other long term (current) drug therapy
CPT/HCPCS: 36415; 71020; 80053; 81001; 85025; 86140; 87086; 87088; 87186; 96360; 99285; J7030; 80048; A9270-GY; J0696; J1650; J1956

== ENCOUNTER 2017-07-02 12:05 | Inpatient (IN) | payer MEDICARE, OTHER ==
[2017-07-02] MEDS ORDERED: Acetaminophen 325 MG Tab PO PRN (12:39)
[2017-07-02] MEDS ORDERED: Menthol/Zinc Oxide Ointment 113 GM Tube TOP PRN (12:39)
[2017-07-02] MEDS ORDERED: Levothyroxine 100 MCG Tab PO SCH ×2 (12:45)
--- NOTE | 2017-07-02 13:05 | PCM.PN ---
- General Info Date of Service: 07/02/17 Admission Dx/Problem (Free Text): UTI-Diarrhea resolved Functional Status: Reports: Pain Controlled, Tolerating Diet, Ambulating, Urinating. Denies: New Symptoms Pain Score: 0 - Review of Systems General: Reports: No Symptoms. Denies: Fever, Weakness, Fatigue HEENT: Reports: No Symptoms Pulmonary: Reports: No Symptoms Cardiovascular: Reports: No Symptoms Gastrointestinal: Reports: No Symptoms, Flatus. Denies: Abdominal Pain, Diarrhea, Melena Genitourinary: Reports: No Symptoms, Other (Nephrostomy tube) Musculoskeletal: Reports: No Symptoms Skin: Reports: No Symptoms Neurological: Reports: Confusion Psychiatric: Reports: Confusion, Mood Lability, Anxiety, Agitation - Patient Data Weight - Most Recent: 46.448 kg Med Orders - Current: Current Medications Acetaminophen (Tylenol) 650 mg PO Q4H PRN PRN Reason: Pain (Mild 1-3)/fever Aspirin (Halfprin) 81 mg PO DAILY [facility] Calamine/Phenol (Calmoseptine) 0 gm TOP QID PRN PRN Reason: Rash Ceftriaxone Sodium (Rocephin) 1 gm IVPUSH Q24H [facility] Cholecalciferol (Vitamin D3) 5,000 units PO DAILY [facility] Latanoprost (Xalatan 0.005% Ophth Soln) 0 ml EYEBOTH BEDTIME [facility] Levothyroxine Sodium (Synthroid) 50 mcg PO Q48H [facility] Levothyroxine Sodium (Synthroid) 100 mcg PO Q48H [facility] Nifedipine (Procardia Xl) 60 mg PO DAILY [facility] Potassium Chloride (Klor-Con 10) 20 meq PO DAILY [facility] Potassium Chloride (Klor-Con 10) 20 meq PO ONETIME ONE Stop: 07/02/17 17:31 Discontinued Medications Latanoprost (Xalatan 0.005% Ophth Soln) 0 ml EYEBOTH BEDTIME [facility] Levothyroxine Sodium (Synthroid) 50 mcg PO Q48H [facility] Levothyroxine Sodium (Synthroid) 100 mcg PO Q48H [facility] Non-Formulary Medication (Cholecalciferol (Vitamin D3) [Vitamin D3]) 5,000 unit PO DAILY [facility] Non-Formulary Medication (Nifedipine [Nifedipine Er]) 60 mg PO DAILY [facility] 07-02-2017 Transfer to Swing Bed for continued IV antibiotic therapy and assistance with ADLs. NH placement early next week. - Exam General: Alert, Oriented, Cooperative, No Acute Distress HEENT: Pupils Equal, Pupils Reactive Neck: Supple Lungs: Clear to Auscultation, Normal Respiratory Effort Cardiovascular: Regular Rate, Regular Rhythm GI/Abdominal Exam: Soft, No Distention Back Exam: Normal Inspection, Full Range of Motion Extremities: Normal Inspection, Normal Range of Motion, Non-Tender, No Pedal Edema, Normal Capillary Refill Peripheral Pulses: 2+: Radial (L), Radial (R), Dorsalis Pedis (L), Dorsalis Pedis (R), 3+: Carotid (L), Carotid (R) Skin: Warm, Dry, Intact Wound/Incisions: Dressing Dry and Intact (IV Hep Lock intact) Neurological: No New Focal Deficit Psy/Mental Status: Alert, Labile Mood, Anxious (Intermittent), Agitated - Problem List & Annotations (1) UTI (urinary tract infection) SNOMED Code(s): 03483543 Code(s): N39.0 - URINARY TRACT INFECTION, SITE NOT SPECIFIED Status: Acute Current Visit: No Qualifiers: Urinary tract infection type: acute cystitis Hematuria presence: with hematuria Qualified Code(s): N30.01 - Acute cystitis with hematuria - Problem List Review Problem List Initiated/Reviewed/Updated: Yes - My Orders Last 24 Hours: My Active Orders 07/02/17 12:39 Patient Status [ADT] Routine Dietary Supplements [RC] BIDMEALS Height and Weight [RC] Q7D Oxygen Therapy [RC] .PRN Up With Assistance [RC] .PRN Consult to [employer] Equipment [employer] [CONS] Routine PT Evaluation and Treatment [CONS] Routine Acetaminophen [Tylenol] 650 mg PO Q4H PRN Menthol/Zinc Oxide [Calmoseptine] 0 gm TOP QID PRN 07/02/17 12:53 Patient Status Manage Transfer [TRANSFER] Routine 07/02/17 17:30 Potassium Chloride [Klor-Con 10] 20 meq PO ONETIME ONE 07/02/17 20:00 Latanoprost [Xalatan 0.005% Ophth Soln] 0 ml EYEBOTH BEDTIME cefTRIAXone [Rocephin] 1 gm IVPUSH Q24H 07/02/17 Dinner Regular Diet [DIET] 07/03/17 05:50 CBC WITH AUTO DIFF [HEME] Routine COMPREHENSIVE METABOLIC PN,CMP [CHEM] Routine CRP [C-REACTIVE PROTEIN] [CHEM] Routine 07/03/17 07:00 Levothyroxine [Synthroid] 100 mcg PO Q48H 07/03/17 08:00 Aspirin [Halfprin] 81 mg PO DAILY Cholecalciferol (Vitamin D3) [Vitamin D3] 5,000 units PO DAILY NIFEdipine [Procardia XL] 60 mg PO DAILY Potassium Chloride [Klor-Con 10] 20 meq PO DAILY 07/04/17 07:00 Levothyroxine [Synthroid] 50 mcg PO Q48H - Assessment Assessment:: UTI resolving Melena-resolved. Alzheimers Depression Anxiety Chronic Renal Failure Nephrostomy tube - Plan Plan:: Transfer to Swing Bed for continued IV antibiotics and pending NH placement.
[2017-07-02] MEDS ORDERED: Potassium Chloride 10 MEQ Tab.ER PO ONE ×2 (17:30)
[2017-07-02] MEDS ORDERED: Latanoprost 0.005% Ophth Soln 2.5 ML Bottle EYEBOTH SCH (20:00)
[2017-07-02] MEDS: Latanoprost 0.005% Ophth Soln 2.5 ML Bottle EYEBOTH SCH (20:17)
[2017-07-02] MEDS: cefTRIAXone 1 GM Vial IVPUSH SCH (20:17)
[2017-07-03] MEDS ORDERED: Levothyroxine 100 MCG Tab PO SCH (07:00)
[2017-07-03] MEDS ORDERED: Non-Formulary Medication 1 Each (Cholecalciferol (Vitamin D3) [Vitamin D3] 5,000 UNIT) PO SCH (08:00)
[2017-07-03] MEDS ORDERED: NIFEDIPINE 60 MG PO SCH (08:00)
[2017-07-03] MEDS: Aspirin 81 MG Tab.EC PO SCH (08:18)
[2017-07-03] MEDS: Potassium Chloride 10 MEQ Tab.ER PO SCH (08:18)
[2017-07-03] MEDS: Cholecalciferol (Vitamin D3) 1,000 Unit Tab PO SCH (08:18)
[2017-07-03] MEDS: NIFEdipine 30 MG Tab.ER PO SCH (08:18)
[2017-07-03] MEDS: cefTRIAXone 1 GM Vial IVPUSH SCH (19:59)
[2017-07-03] MEDS: Latanoprost 0.005% Ophth Soln 2.5 ML Bottle EYEBOTH SCH (19:59)
[2017-07-04] MEDS ORDERED: Levothyroxine 50 MCG Tab PO SCH (07:00)
[2017-07-04 07:20] VITALS: BP 113/62
[2017-07-04] MEDS: Aspirin 81 MG Tab.EC PO SCH (08:19)
[2017-07-04] MEDS: Potassium Chloride 10 MEQ Tab.ER PO SCH (08:19)
[2017-07-04] MEDS: Cholecalciferol (Vitamin D3) 1,000 Unit Tab PO SCH (08:19)
[2017-07-04] MEDS: NIFEdipine 30 MG Tab.ER PO SCH (08:19)
--- NOTE | 2017-07-04 08:58 | DISCH ---
HOSPITAL COURSE: Olga Ruvalcaba is an elderly white female who came in with a UTI, confused, dementia. She is now started on IV therapy and switched over to swing bed. At the time of discharge, she was asymptomatic, mildly hypokalemic. She was started potassium that did correct itself. Last lab CBC looked good, creatinine mildly elevated 1.5, which was normal for her. DISPOSITION: The patient now discharged to [facility]. DISCHARGE DIAGNOSIS: 1. URINARY TRACT INFECTION. 2. DEMENTIA. 3. HYPOTHYROIDISM. 4. HYPERTENSION. CODI/CLEO /[id number]
== END 2017-07-04 11:10 | DRG 690 ==
LOC: UNDOADMIN 12:05 → CC.MS 12:05
PROVIDERS: ADMIT Nurse Practitioner; ATTEND General Practice
DX: N39.0 Urinary tract infection, site not specified (principal); R53.1 Weakness; R19.7 Diarrhea, unspecified; F03.90 Unspecified dementia, unspecified severity, without behavioral disturbance, psychotic disturbance, mood disturbance, and anxiety; E03.9 Hypothyroidism, unspecified; I10 Essential (primary) hypertension; N18.9 Chronic kidney disease, unspecified; I73.00 Raynaud's syndrome without gangrene; F41.8 Other specified anxiety disorders; E55.9 Vitamin D deficiency, unspecified; Z93.6 Other artificial openings of urinary tract status; Z79.899 Other long term (current) drug therapy; Z88.1 Allergy status to other antibiotic agents
CPT/HCPCS: 36415; 80053; 83735; 85025; 85379; 86140; A9270-GY; J0696